=== PATIENT | male | born 1970 | race Caucasian/White ===

== ENCOUNTER 2019-05-27 11:21 | Emergency (ER) | payer BC, MEDICAID, OTHER ==
--- NOTE | 2019-05-27 11:31 | ER Document Report ---
ED General - General Stated Complaint: UNRESPONSIVE Time Seen by Provider: 05/27/19 11:25 Primary Care Provider: PHIL MCCLAIN [NO LOCAL MD] - Follow up as needed Notes: 49-year-old male history of stroke with right-sided deficit/rigidity at baseline as well as slurred speech at baseline who presents with unresponsiveness. He was last seen normal at 10, on the couch, 30 minutes later he was found on the floor with blood coming from the mouth unresponsive. Per EMS he slowly came to the became quite agitated. Baseline slurred speech unchanged baseline right- sided rigidity unchanged but level of consciousness was not his baseline. He is unable to give any history. Blood sugar was good, vital signs showed initial hypertension and hypotension. No known drugs or alcohol. EMS gave Versed secondary to agitation. - Related Data Allergies/Adverse Reactions: Penicillins Allergy (Verified 05/27/19 12:57) Past Medical History - General Information source: Patient, Emergency Med Personnel Cannot obtain history due to: Altered mental status - Social History Smoking Status: Unknown if Ever Smoked Family History: None Review of Systems - Review of Systems Notes: REVIEW OF SYSTEMS Obtained: Altered mental status PHYSICAL EXAMINATION General: No acute distress, well-nourished Head: Atraumatic, normocephalic ENT: Dried blood on mouth. Unable to visualize tongue laceration. Eyes: Conjunctiva normal, pupils equal, lids normal Neck: No JVD, supple, no guarding CVS: Normal rate, regular rhythm, no murmurs Resp: No resp distress, equal and normal breath sounds bilaterally GI: Nondistended, soft, no tenderness to palpation, no rebound or guarding Ext: No deformities, no edema, normal range of motion in upper and lower ext Back: No CVA or midline TTP Skin: No rash, warm Lymphatic: No lymphadeopathy noted Neuro: Eyes open. Slurred speech but asks and responds to simple questions. Face is symmetric. Memory is impaired. Increased tone right upper extremity greater than right lower extremity with clonus. Left-sided ankle clonus. Does not follow commands but withdraws and localizes pain on the left. Physical Exam - Vital signs Vitals: Resp BP Pulse Ox 14 95/59 L 89 L 05/27/19 11:24 05/27/19 11:24 05/27/19 11:24 Course - Re-evaluation Re-evalutation: 05/27/19 11:30 Patient arrives with resolving altered mental status. Mild hypotension. He has tongue trauma and history of stroke so I suspect seizure plus or minus talks. Bleed could also be going on as well as a new stroke although his right deficits are unchanged from baseline. He is received Versed, so we will not give further benzos at this time given his mental status. Will give fluid bolus. Will check EKG, rectal temperature, full stroke lab work-up as well as drug screen, and take patient to CT scan. Airway is protected on arrival. 05/27/19 12:44 Patient's mental status improved over about [address] minutes [address] showed old stroke on the left which is consistent with his family's knowledge of his old stroke. Family is now here and states that he said stiffen a bit and it seems like he has had a seizure. That said he still hypotensive and tachycardic and has a white count. He has no cough no fever and no other signs or symptoms of infection per him or his family. He does see a neurologist in [place] Dr. Lozano and his primary care is Dr. Bishop. I will send him down to [facility] for further work-up of his situation 05/27/19 13:[address] zhang who will admit the patient to the neurology floor. Loaded with Foster. - Vital Signs Vital signs: Temp Pulse Resp BP Pulse Ox 97.2 F 109 H 14 96/66 L 96 05/27/19 12:36 05/27/19 12:00 05/27/19 12:01 05/27/19 12:01 05/27/19 12:01 - Laboratory Result Diagrams: 05/27/19 11:25 05/27/19 11:25 Laboratory results interpreted by me: 05/27/19 05/27/19 05/27/19 11:25 11:25 11:25 WBC 18.0 H Seg Neutrophils % 78.7 H Lymphocytes % 12.2 L Absolute Neutrophils 14.1 H Chloride 108 H Carbon Dioxide 19 L Glucose 111 H Lactic Acid 5.4 H Calcium 7.9 L Alkaline Phosphatase 131 H Total Protein 5.2 L Albumin 3.0 L - Diagnostic Test Radiology reviewed: Image reviewed, Reports reviewed - EKG Interpretation by Me EKG shows normal: Sinus rhythm, Swain Rate: Tachycardia Rhythm: NSR Critical Care Note - Critical Care Note Total time excluding time spent on procedures (mins): 70 Comments: The above patient is critically ill. Not including procedures, but including direct re-evaluations, speaking with patient and/or consultants, interpreting results, and documenting, I spent the total amount of minute listed listed above on critical care time Discharge - Discharge Clinical Impression: Altered mental status Qualifiers: Altered mental status type: somnolence Qualified Code(s): R40.0 - Somnolence Condition: Critical Disposition: [facility] Referrals: LOCALMD,NO [NO LOCAL MD] - Follow up as needed
[2019-05-27 11:39] LABS: INTERNATIONAL RATION (INR) 1.06
[2019-05-27 11:42] LABS: ABSOLUTE BASOPHILS # (AUTO) 0.1 10^3/uL (0.0-0.2); ABSOLUTE EOSINOPHILS # (AUTO) 0.6 10^3/uL (0.0-0.6); ABSOLUTE LYMPHOCYTES (AUTO) 2.2 10^3/uL (0.5-4.7); ABSOLUTE NEUT (AUTO) 14.1 10^3/uL (1.7-8.2); BASOPHILS % (AUTO) 0.5 % (0-2); EOSINOPHILS % (AUTO) 3.3 % (0-6); HEMATOCRIT 40.5 % (37.9-51.0); LYMPHOCYTES % (AUTO) 12.2 % (13-45); MEAN CORPUSCULAR HEMOGLOBIN 28.8 pg (27.0-33.4); MEAN CORPUSCULAR HGB CONC 34.6 g/dL (32.0-36.0); MEAN CORPUSCULAR VOLUME 83 fl (80-97); MONOCYTES % (AUTO) 5.3 % (3-13); PLATELET COUNT 349 10^3/uL (150-450); PROTHROMBIN TIME 13.8 SEC (11.4-15.4); RED BLOOD COUNT 4.86 10^6/uL (4.35-5.55); RED CELL DISTRIBUTION WIDTH 13.6 % (11.5-14.0); SEGMENTED NEUTROPHILS % (AUTO) 78.7 % (42-78); TOTAL CELLS COUNTED % (AUTO) 100 %
[2019-05-27 11:59] LABS: ALANINE AMINOTRANSFERASE 48 U/L (21-72); ALKALINE PHOSPHATASE 131 U/L (38-126); ANION GAP 11 (5-19); ASPARTATE AMINO TRANSFERASE 27 U/L (17-59); BILIRUBIN,DIRECT 0.2 mg/dL (0.0-0.4); BILIRUBIN,TOTAL 0.4 mg/dL (0.2-1.3); BLOOD UREA NITROGEN 12 mg/dL (7-20); CALCIUM 7.9 mg/dL (8.4-10.2); CARBON DIOXIDE 19 mmol/L (22-30); CHLORIDE 108 mmol/L (98-107); CREATINE KINASE 65 U/L (55-170); GLUCOSE 111 mg/dL (75-110); POTASSIUM 3.8 mmol/L (3.6-5.0); TOTAL PROTEIN 5.2 g/dL (6.3-8.2)
--- NOTE | 2019-05-27 12:10 | RADIOLOGY REPORT (SQ) ---
EXAM DESCRIPTION: CT HEAD WITHOUT COMPLETED DATE/TIME: 05/27/2019 11:47 am REASON FOR STUDY: stroke/sz COMPARISON: None. TECHNIQUE: Axial images acquired through the brain without intravenous contrast. Images reviewed wi th bone, brain and subdural windows. Additional sagittal and coronal reconstructions were generated. Images stored on PACS. All CT scanners at this facility use dose modulation, iterative reconstruction, and/or weight based d osing when appropriate to reduce radiation dose to as low as reasonably achievable (ALARA). [facility]: Dose Right [facility]: CareDose [facility]: Dose Right [facility]: Teradose 4D [facility]: [employer] RADIATION DOSE: CT Rad equipment meets quality standard of care and radiation dose reduction techniq ues were employed. CTDIvol: 53.2 mGy. DLP: 1097 mGy-cm. mGy. LIMITATIONS: None. FINDINGS: VENTRICLES: Ex vacuo dilation of the left lateral ventricle. CEREBRUM: Large area of hypoattenuation and encephalomalacia involving the left frontal, temporal lob es, insula and basal ganglia. Scattered adjacent areas of increased attenuation, likely parenchymal calcifications. Remaining perry-white differentiation is preserved. No other evidence of new large v ascular territory infarct. CEREBELLUM: No masses. No hemorrhage. No alteration of density. No evidence for acute infarction. EXTRAAXIAL SPACES: No fluid collections. No masses. ORBITS AND GLOBE: No intra- or extraconal masses. Normal contour of globe without masses. CALVARIUM: No fracture. PARANASAL SINUSES: Mucosal thickening throughout the right maxillary sinus and ethmoid air cells. Re maining sinuses are clear. SOFT TISSUES: No mass or hematoma. OTHER: No other significant finding. IMPRESSION: 1. Large chronic appearing left MCA territory infarct. No other evidence acute intracra nial process. 2. Mucosal sinus disease within the right maxillary sinus and ethmoid air cells. EVIDENCE OF ACUTE STROKE: NO. Pertinent positive or negative findings of the imaging study reported as a CRITICAL EXAM to Dr. Christine betancur MD at12:04 on 05/27/2019. Category of Critical Exam: Negative code stroke COMMENT: Quality ID # [id number]: Final reports with documentation of one or more dose reduction techniques (e.g., Automated exposure control, adjustment of the mA and/or kV according to patient size, use of iterative reconstruction technique) TECHNICAL DOCUMENTATION: JOB ID: [id number] [employer]- All Rights Reserved Reading location - IP/workstation name: [email or web address]
[2019-05-27 12:11] LABS: CREATINE KINASE MB 0.79 ng/mL (<4.55)
--- NOTE | 2019-05-27 12:30 | RADIOLOGY REPORT (SQ) ---
EXAM DESCRIPTION: CHEST SINGLE VIEW COMPLETED DATE/TIME: 05/27/2019 11:49 am REASON FOR STUDY: stroke/sz COMPARISON: None. EXAM PARAMETERS: NUMBER OF VIEWS: One view. TECHNIQUE: Single frontal radiographic view of the chest acquired. RADIATION DOSE: NA LIMITATIONS: None. FINDINGS: LUNGS AND PLEURA: No opacities, masses or pneumothorax. No pleural effusion. MEDIASTINUM AND HILAR STRUCTURES: No masses. Contour normal. HEART AND VASCULAR STRUCTURES: Heart normal in size. Normal vasculature. BONES: No acute findings. HARDWARE: None in the chest. OTHER: No other significant finding. IMPRESSION: NO ACUTE RADIOGRAPHIC FINDING IN THE CHEST. TECHNICAL DOCUMENTATION: JOB ID: [id number] [employer]- All Rights Reserved Reading location - IP/workstation name: [email or web address]
[2019-05-27] MEDS ORDERED: LEVETIRACETAM 1000 MG/NACL-ISO 1,000 MG/100 ML RTUPB IV ONE (12:58)
[2019-05-27 13:01] LABS: URINE AMPHETAMINES SCREEN NEGATIVE; URINE BARBITURATES SCREEN NEGATIVE; URINE BENZODIAZEPINES SCREEN UNCONFIRMED POSITIVE; URINE COCAINE SCREEN NEGATIVE; URINE MARIJUANA (THC) SCREEN NEGATIVE; URINE METHADONE SCREEN NEGATIVE; URINE PHENCYCLIDINE SCREEN NEGATIVE
--- NOTE | 2019-05-27 14:47 | EKG REPORT ---
SEVERITY:- ABNORMAL ECG - SINUS TACHYCARDIA SINUS PAUSE/ARREST WITH ATRIAL ESCAPE BORDERLINE RIGHT AXIS DEVIATION PROLONGED QT INTERVAL : Confirmed by: Cristina Abebe MD 27-May-2019 14:46:16
[2019-05-27 16:03] VITALS: BP 101/60
[2019-05-28 14:54] LABS: TROPONIN I 0.052 ng/mL
== END 2019-05-27 14:05 | disposition short-term general hospital (02) ==
LOC: ER 11:21
DX: R40.0 Somnolence (principal); R47.81 Slurred speech; I95.9 Hypotension, unspecified
CPT/HCPCS: 93005; 99291; 96365; 36415; 87040; 82553; 82962; 82550; 85025; 85610; 85730; 80053; 84484; 80307; 83605; 71045; 70450; 93010; J1953

== ENCOUNTER 2019-07-10 16:37 | Emergency (ER) | payer MEDICAID ==
[2019-07-10 17:12] LABS: ABSOLUTE BASOPHILS # (AUTO) 0.1 10^3/uL (0.0-0.2); ABSOLUTE EOSINOPHILS # (AUTO) 0.6 10^3/uL (0.0-0.6); ABSOLUTE LYMPHOCYTES (AUTO) 2.1 10^3/uL (0.5-4.7); ABSOLUTE MONOCYTES (AUTO) 0.7 10^3/uL (0.1-1.4); BASOPHILS % (AUTO) 0.7 % (0-2); EOSINOPHILS % (AUTO) 4.1 % (0-6); HEMATOCRIT 44.5 % (37.9-51.0); LYMPHOCYTES % (AUTO) 14.6 % (13-45); MEAN CORPUSCULAR HEMOGLOBIN 27.8 pg (27.0-33.4); MEAN CORPUSCULAR HGB CONC 33.6 g/dL (32.0-36.0); MEAN CORPUSCULAR VOLUME 83 fl (80-97); MONOCYTES % (AUTO) 4.7 % (3-13); PLATELET COUNT 355 10^3/uL (150-450); RED BLOOD COUNT 5.39 10^6/uL (4.35-5.55); RED CELL DISTRIBUTION WIDTH 13.4 % (11.5-14.0); SEGMENTED NEUTROPHILS % (AUTO) 75.9 % (42-78); TOTAL CELLS COUNTED % (AUTO) 100 %; WHITE BLOOD COUNT 14.4 10^3/uL (4.0-10.5)
[2019-07-10] MEDS ORDERED: LEVETIRACETAM 500 MG/NACL-ISO 500 MG/100 ML RTUPB IV ONE (17:17)
--- NOTE | 2019-07-10 17:23 | ER Document Report ---
ED General - General Chief Complaint: Seizure Stated Complaint: SEIZURE Time Seen by Provider: 07/10/19 17:06 TRAVEL OUTSIDE OF THE [place] IN LAST 30 DAYS: No - HPI Notes: Patient is a 49-year-old male with a history of seizures, who presents to the emergency department for evaluation after a seizure. Evidently the patient takes Keppra. He ran out of it 2 days ago. The patient denies any memory of this. He actually initially tells me that he does not have any seizure disorder. According to EMS he did have a witnessed 3-minute grand mal seizure. Afterwards he was postictal and combative. He was medicated with IM Versed and transported to the hospital. The patient at this point denies any pain. - Related Data Allergies/Adverse Reactions: Penicillins Allergy (Verified 05/27/19 12:57) Home Medications: Keppra, atorvastatin, fluoxetine, aspirin, omeprazole Past Medical History - General Information source: Patient, [facility] Records - Social History Smoking Status: Current Every Day Smoker Family History: Reviewed & Not Pertinent - Past Medical History Cardiac Medical History: Reports: Hx Hypercholesterolemia Neurological Medical History: Reports: Hx Cerebrovascular Accident - Residual right-sided weakness, Hx Seizures Renal/ Medical History: Denies: Hx Peritoneal Dialysis GI Medical History: Reports: Hx Gastroesophageal Reflux Disease Review of Systems - Review of Systems Constitutional: No symptoms reported EENT: No symptoms reported Cardiovascular: No symptoms reported Respiratory: No symptoms reported Gastrointestinal: No symptoms reported Genitourinary: No symptoms reported Musculoskeletal: No symptoms reported Skin: No symptoms reported Neurological/Psychological: See HPI Physical Exam - Vital signs Vitals: Resp Pulse Ox 8 L 94 07/10/19 16:59 07/10/19 16:59 - Notes Notes: Vital signs reviewed, please refer to chart. Head is normocephalic, atraumatic. Pupils equal round, reactive to light. Oral mucosa is moist. There is a small superficial laceration to the right anterior tongue consistent with bite injury. Neck is supple without meningismus. Heart is regular rate and rhythm. Lungs are clear to auscultation bilaterally. Abdomen is soft, nontender, normoactive bowel sounds throughout. Extremities without cyanosis, clubbing. Posterior calves are nontender. Peripheral pulses are equal. Skin is warm and dry. Patient is drowsy but arouses easily to verbal stimuli. He does have some difficulty following commands. No gross facial asymmetry. Right upper extremity weakness with contracture of the right fingers. Hyperreflexia on the right as well. Course - Re-evaluation Re-evalutation: 07/10/19 17:25 Patient presents emergency department for evaluation after a reported seizure. He does have a history of seizures, empty medication bottle of Keppra is in the room with the patient. I did go ahead and load him with 500 mg of IV Keppra. Laboratory investigations obtained. Seizure precautions enacted. We will continue to monitor. 07/10/19 22:01 Patient is his presented to the emergency department. She states this is a normal seizure for him. He was supposed to have his seizure medication called into the pharmacy, for whatever reason it was not done. She states he is back to baseline, and I agree based on normal neurological exam at this time. I will then write him a prescription for Keppra, 500 mg twice a day, as has been previously written. We will write him a two-week supply. He is to follow-up with primary care and neurology, return to the ED with worsening or new concerning symptoms of any sort. - Vital Signs Vital signs: Temp Pulse Resp BP Pulse Ox 97.9 F 15 108/87 H 96 07/10/19 17:00 07/10/19 20:01 07/10/19 20:00 07/10/19 20:01 - Laboratory Result Diagrams: 07/10/19 16:55 07/10/19 16:55 Laboratory results interpreted by me: 07/10/19 07/10/19 07/10/19 16:55 16:55 20:50 WBC 14.4 H Absolute Neuts (auto) 11.0 H Carbon Dioxide 21 L Glucose 124 H Alkaline Phosphatase 150 H Total Protein 6.2 L Urine Protein 30 H Discharge - Discharge Clinical Impression: Seizure Condition: Stable Disposition: HOME, SELF-CARE Instructions: Seizure, Known Epileptic ([facility]) Additional Instructions: Take your seizure medication as prescribed. Follow-up with neurology and primary care. Return to the emergency department for worsening or new concerning symptoms of any sort.
[2019-07-10 17:39] LABS: ALBUMIN 3.6 g/dL (3.5-5.0); ALKALINE PHOSPHATASE 150 U/L (38-126); ANION GAP 13 (5-19); ASPARTATE AMINO TRANSFERASE 35 U/L (17-59); BILIRUBIN,DIRECT 0.2 mg/dL (0.0-0.4); BILIRUBIN,TOTAL 0.5 mg/dL (0.2-1.3); BLOOD UREA NITROGEN 9 mg/dL (7-20); CALCIUM 9.2 mg/dL (8.4-10.2); CARBON DIOXIDE 21 mmol/L (22-30); CHLORIDE 105 mmol/L (98-107); GLUCOSE 124 mg/dL (75-110); POTASSIUM 3.8 mmol/L (3.6-5.0); TOTAL PROTEIN 6.2 g/dL (6.3-8.2)
[2019-07-10 17:43] LABS: ALCOHOL < 10 mg/dL (NONE DETECTED)
[2019-07-10 21:26] LABS: APPEARANCE,URINE CLEAR; BILIRUBIN,URINE NEGATIVE (NEGATIVE); COLOR,URINE YELLOW; GLUCOSE, URINE NEGATIVE (NEGATIVE); KETONES,URINE NEGATIVE (NEGATIVE); LEUKOCYTE ESTERASE,URINE NEGATIVE (NEGATIVE); NITRITE,URINE NEGATIVE (NEGATIVE); PROTEIN,URINE 30 mg/dL (NEGATIVE); URINE SPECIFIC GRAVITY 1.013; UROBILINOGEN,URINE NEGATIVE mg/dL (<2.0)
--- NOTE | 2019-07-10 22:20 | EKG REPORT ---
SEVERITY:- ABNORMAL ECG - SINUS TACHYCARDIA PROBABLE LEFT ATRIAL ABNORMALITY BORDERLINE RIGHT AXIS DEVIATION PROLONGED QT INTERVAL : Confirmed by: Cristina Abebe MD 10-Jul-2019 22:19:05
[2019-07-10 22:22] VITALS: BP 100/81
== END 2019-07-10 22:35 | disposition home or self-care (01) ==
LOC: ER 16:37
DX: R56.9 Unspecified convulsions (principal); F17.200 Nicotine dependence, unspecified, uncomplicated; Z79.899 Other long term (current) drug therapy
CPT/HCPCS: 93005; 99284; 96374; 36415; 82962; 80307; 83735; 85025; 80053; 81001; 93010; J1953